=== PATIENT | female | born 2000 | race Caucasian/White ===

== ENCOUNTER 2019-01-30 22:38 | Emergency (ER) | payer SELFPAY ==
[~2019-01-30] VITALS: Ht 167.6 cm; Wt 57.1 kg
--- NOTE | 2019-01-30 23:44 | ED Upper Extremity ---
General Chief Complaint: Upper Extremity Stated Complaint: R HAND WEAKNESS/PAIN Source: patient, other Exam Limitations: no limitations History of Present Illness Date Seen by Provider: Jan 30, 2019 Time Seen by Provider: 23:26 Initial Comments The patient presents to ER by private conveyance with her significant other chief complaint of for the past 3 or 4 days she's had some progressively worsening pain especially on flexion of her right wrist. She is right-handed. She borrowed a cock-up splint from her mom who had similar problems when she was younger. She has not taken any NSAIDs Tylenol steroids nor had this worked up but she does have an appointment with Dr. Real on Saturday, 3 days from now. She has no other significant medical or surgical problems. She does get some weakness in her hand and sometimes when she raises it above the level of her head hurts. No history of trauma. Allergies and Home Medications Allergies Coded Allergies: Promethazine (Verified Adverse Reaction, Severe, SPASTIC MOVEMENTS Q 20 SECONDS REPETIVELY, 08/29/09) Patient Home Medication List Home Medication List Reviewed: Yes Review of Systems Constitutional: No chills, No diaphoresis EENTM: No ear discharge, No ear pain Respiratory: No cough, No short of breath Cardiovascular: No chest pain, No edema Gastrointestinal: No abdominal pain, No nausea Genitourinary: No discharge, No dysuria : No LMP: Jan 28, 2019 Musculoskeletal: No back pain, No joint pain Skin: No pruritus, No rash Past Vbliadb-Nvvhcy-Sfpbnk Hx Patient Social History Alcohol Use: Denies Use Recreational Drug Use: No Smoking Status: Never a Smoker Recent Foreign Travel: No Contact w/Someone Who Travel: No Past Medical History Reproductive Disorders: No Physical Exam Vital Signs Capillary Refill : Height, Weight, BMI Height: '" Weight: lbs. oz. kg; BMI Method: General Appearance: WD/WN, no apparent distress HEENT: PERRL/EOMI, normal ENT inspection, pharynx normal Neck: non-tender, full range of motion, supple, normal inspection Cardiovascular: normal peripheral pulses, regular rate, rhythm Respiratory: no respiratory distress, no accessory muscle use Shoulder: normal inspection, non-tender, no evidence of injury, normal ROM (r) Elbow/Forearm: normal inspection, non-tender, no evidence of injury, normal ROM, Right Wrist: Yes normal inspection, Yes no evidence of injury, Yes normal ROM, Yes soft tissue tenderness (tenderness to Tinel's Minor over the flexor retinaculum and median nerve. Phalen's maneuver also re-create some of her symptoms.) Hand: normal inspection, non-tender, no evidence of injury, normal ROM, Right, soft tissue tenderness (capillary refill right hand all 5 digits brisk less than 1 second. Radial pulse 2 out of 4 bilateral upper extremities) Neurologic/Psychiatric: no motor/sensory deficits, alert, normal mood/affect, oriented x 3 Progress/Results/Core Measures Results/Orders My Orders Orders - GUANACO ZHONG Naproxen Tablet (Naprosyn Tablet) (01/30/19 23:45) Progress Progress Note : Time: 23:42 Progress Note Conservative management and continue to wear the cockup. Keep follow-up with Dr. Real. We'll put her on prescription Naprosyn. Departure Impression Primary Impression: Median nerve compression Disposition: 01 HOME, SELF-CARE Condition: Stable Departure-Patient Inst. Decision time for Depature: 23:44 Referrals: NIGEL REAL MD (PCP/Family) Primary Care Physician Patient Instructions: Carpal Tunnel Exercises, Carpal Tunnel Syndrome (DC) Add. Discharge Instructions: Review the exercises in the handout. Use ice applied directly to the wrist for swelling or pain or other symptoms. Use Tylenol 1000 mg as needed for breakthrough pain. Use the Naprosyn 500 mg twice daily for the next 2 weeks on a schedule. Keep your follow-up appointment with your primary care doctor for continued management. Wear the cock-up splint at all times except to bathe. All discharge instructions reviewed with patient and/or family. Voiced understanding. Scripts Naproxen (Naprosyn) 500 Mg Tablet 500 MG PO BID for 14 Days, #30 TAB 0 Refills Prov: GUANACO ZHONG 01/30/19 Work/School Note: Work Release Form Date Seen in the Emergency Department: Jan 30, 2019 Return to Work: Jan 31, 2019 Restrictions: Need Release from Doctor Other Restrictions Listed Below: Wear the cock-up splint until 02/13/18. Copy Copies To 1: NIGEL REAL MD, TITUS J Jan 30, 2019 23:44
[2019-01-30] MEDS ORDERED: NAPR-1071 PO (23:45)
[2019-01-30] MEDS ORDERED: NAPROXEN 250 MG (NAPROSYN) TABLET PO ONE (23:45)
[2019-01-30] MEDS ORDERED: RX-NAPROXEN (NAPROSYN) 250 MG TAB PPK#4 PO ONE (23:57)
[2019-01-31] MEDS ORDERED: RX-NAPROXEN (NAPROSYN) 250 MG TAB PPK#4 PO STA
[2019-01-31 00:10] VITALS: BP 105/70
== END 2019-01-31 00:11 | disposition home or self-care (01) ==
LOC: EDUNIT# 22:38 → ER 22:39
DX: G56.01 Carpal tunnel syndrome, right upper limb (principal); Z88.8 Allergy status to other drugs, medicaments and biological substances
CPT/HCPCS: 99283

== ENCOUNTER 2020-11-22 00:25 | Emergency (ER) | payer SELFPAY ==
[~2020-11-22] VITALS: Ht 167.7 cm; Wt 55.3 kg
[~2020-11-22 00:25] MED LIST: NAPR-1071 PO
[2020-11-22] MEDS ORDERED: KETOROLAC 30 MG/ML VIAL IVP ONE (00:45)
[2020-11-22] MEDS ORDERED: PANTOPRAZOLE 40 MG (PROTONIX) VIAL IV ONE (00:45)
[2020-11-22 00:50] LABS: BILIRUBIN,URINE NEGATIVE (NEGATIVE); CLARITY,URINE CLEAR; COLOR,URINE YELLOW; GLUCOSE, URINE (UA) NEGATIVE (NEGATIVE); KETONES,URINE NEGATIVE (NEGATIVE); LEUKOCYTE ESTERASE ,URINE NEGATIVE (NEGATIVE); NITRITE,URINE NEGATIVE (NEGATIVE); PROTEIN,URINE NEGATIVE (NEGATIVE)
--- NOTE | 2020-11-22 00:50 | ED Abdominal Pain ---
General Stated Complaint: SEVERE ABD PAIN,PAIN ABOVE BELLY BUTTON Source of Information: Patient Exam Limitations: No Limitations History of Present Illness Date Seen by Provider: Nov 22, 2020 Time Seen by Provider: 00:32 Initial Comments Patient presents ER by private conveyance from home with chief complaint of abdominal pain in the epigastric region. Had this episode 3 or 4 days ago but it went away spontaneously. Came back tonight. Seems to get worse after eating. She had chips and cheese dip tonight. No nausea presently but she did have some when the pain got very intense. She rates it as a 7 out of 10 now. No history of abdominal surgeries or trauma. No work-up thus far. No dysuria diarrhea or constipation. No fevers chills cough shortness of air. She did try some Tums and it did not do anything for her pain. Allergies and Home Medications Allergies Coded Allergies: promethazine (Verified Adverse Reaction, Severe, SPASTIC MOVEMENTS Q 20 SECONDS REPETIVELY, 08/29/09) Home Medications Naproxen 500 Mg Tablet, 500 MG PO BID Prescribed by: GUANACO ZHONG on 01/30/19 7647 Patient Home Medication List Home Medication List Reviewed: Yes Review of Systems Review of Systems Constitutional: No chills, No diaphoresis EENTM: No Blurred Vision, No Double Vision Respiratory: Denies Cough, Denies Shortness of Air Cardiovascular: Denies Chest Pain, Denies Lightheadedness Gastrointestinal: See HPI, Abdominal Pain; Denies Constipated, Denies Diarrhea, Denies Nausea, Denies Vomiting Genitourinary: Denies Burning, Denies Discharge Musculoskeletal: No back pain, No joint pain Psychiatric/Neurological: Denies Anxiety, Denies Depressed All Other Systems Reviewed Negative Unless Noted: Yes Past Wdvnszz-Qmgakk-Ygllqn Hx Patient Social History Alcohol Use: Rarely Uses Drug of Choice: MARIJUANA Type Used: Electronic/Vapor Recent Hopitalizations: No Seasonal Allergies Seasonal Allergies: No Past Medical History Surgeries: No (WISDOM TEETH) Respiratory: No Cardiac: No Neurological: No Reproductive Disorders: No Genitourinary: No Gastrointestinal: No Musculoskeletal: No Endocrine: No HEENT: No Cancer: No Psychosocial: No Blood Disorders: No Physical Exam Vital Signs Vital Signs - First Documented 11/22/20 00:35 Temp 36.6 Pulse 95 Resp 18 B/P (MAP) 128/78 (95) Pulse Ox 97 O2 Delivery Room Air Capillary Refill : Height/Weight/BMI Height: 5'6.00" Weight: 125lbs. 12.8oz. [id number]; BMI Method:Stated General Appearance: WD/WN, no apparent distress HEENT: PERRL/EOMI, pharynx normal Neck: full range of motion, normal inspection Respiratory: no respiratory distress, no accessory muscle use Cardiovascular: normal peripheral pulses, regular rate, rhythm Gastrointestinal: normal bowel sounds, soft, no organomegaly, tenderness (Epigastric tenderness), other (Negative for Muller sign tenderness, rebound tenderness, Rovsing sign, psoas sign.) Extremities: normal range of motion, non-tender, normal capillary refill Neurologic/Psychiatric: alert, normal mood/affect, oriented x 3 Skin: normal color, warm/dry Progress/Results/Core Measures Results/Orders Lab Results Laboratory Tests Test 11/22/20 00:35 11/22/20 00:45 11/22/20 01:20 Range/Units Urine Color YELLOW Urine Clarity CLEAR Urine pH 6.0 5-9 Urine Specific [place] 1.025 H 1.016-1.022 Urine Protein NEGATIVE NEGATIVE Urine Glucose (UA) NEGATIVE NEGATIVE Urine Ketones NEGATIVE NEGATIVE Urine Nitrite NEGATIVE NEGATIVE Urine Bilirubin NEGATIVE NEGATIVE Urine Urobilinogen 0.2 < = 1.0 MG/DL Urine Leukocyte Esterase NEGATIVE NEGATIVE Urine RBC (Auto) TRACE-I NEGATIVE Urine RBC 2-5 H /HPF Urine WBC NONE /HPF Urine Squamous Epithelial Cells 5-10 /HPF Urine Crystals NONE /LPF Urine Bacteria NEGATIVE /HPF Urine Casts NONE /LPF Urine Mucus SMALL H /LPF Urine Culture Indicated NO White Blood Count 10.7 4.3-11.0 10^3/uL Red Blood Count 4.39 3.80-5.11 10^6/uL Hemoglobin 13.8 11.5-16.0 g/dL Hematocrit 42 35-52 % Mean Corpuscular Volume 95 80-99 fL Mean Corpuscular Hemoglobin 31 25-34 pg Mean Corpuscular Hemoglobin Concent 33 32-36 g/dL Red Cell Distribution Width 12.2 10.0-14.5 % Platelet Count 266 130-400 10^3/uL Mean Platelet Volume 11.8 9.0-12.2 fL Immature Granulocyte % (Auto) 0 % Neutrophils (%) (Auto) 40 L 42-75 % Lymphocytes (%) (Auto) 24 12-44 % Monocytes (%) (Auto) 7 0-12 % Eosinophils (%) (Auto) 28 H 0-10 % Basophils (%) (Auto) 1 0-10 % Neutrophils # (Auto) 4.3 1.8-7.8 10^3/uL Lymphocytes # (Auto) 2.6 1.0-4.0 10^3/uL Monocytes # (Auto) 0.8 0.0-1.0 10^3/uL Eosinophils # (Auto) 2.9 H 0.0-0.3 10^3/uL Basophils # (Auto) 0.1 0.0-0.1 10^3/uL Immature Granulocyte # (Auto) 0.0 0.0-0.1 10^3/uL Neutrophils % (Manual) 34 % Lymphocytes % (Manual) 31 % Monocytes % (Manual) 10 % Eosinophils % (Manual) 25 % Blood Morphology Comment NORMAL Sodium Level 138 135-145 MMOL/L Potassium Level 3.9 3.6-5.0 MMOL/L Chloride Level 105 98-107 MMOL/L Carbon Dioxide Level 23 21-32 MMOL/L Anion Gap 10 5-14 MMOL/L Blood Urea Nitrogen 13 7-18 MG/DL Creatinine 0.74 0.60-1.30 MG/DL Estimat Glomerular Filtration Rate > 60 BUN/Creatinine Ratio 18 Glucose Level 90 70-105 MG/DL Calcium Level 8.5 8.5-10.1 MG/DL Corrected Calcium 8.7 8.5-10.1 MG/DL Total Bilirubin 0.3 0.1-1.0 MG/DL Aspartate Amino Transf (AST/SGOT) 18 5-34 U/L Alanine Aminotransferase (ALT/SGPT) 15 0-55 U/L Alkaline Phosphatase 53 40-136 U/L C-Reactive Protein High Sensitivity 0.05 0.00-0.50 MG/DL Total Protein 6.5 6.4-8.2 GM/DL Albumin 3.7 3.2-4.5 GM/DL Lipase 17 8-78 U/L My Orders Orders - GUANACO ZHONG Ua Culture If Indicated (11/22/20 00:31) Urine Bedside (11/22/20 00:31) Cbc With Automated Diff (11/22/20 00:45) Comprehensive Metabolic Panel (11/22/20 00:45) Hs C Reactive Protein (11/22/20 00:45) Lipase (11/22/20 00:45) Pantoprazole Injection (Protonix Injecti (11/22/20 00:45) Ketorolac Injection (Toradol Injection) (11/22/20 00:45) Manual Differential (11/22/20 00:45) Lactated Ringers (Lr 1000 Ml Iv Solution (11/22/20 00:57) Ed Iv/Invasive Line Start (11/22/20 01:09) Lactated Ringers (Lr 1000 Ml Iv Solution (11/22/20 01:15) Medications Given in ED Current Medications Medications Dose Ordered Sig/Hayde Route Start Time Stop Time Status Last Admin Dose Admin Ketorolac Tromethamine 30 mg ONCE ONCE IVP 11/22/20 00:45 11/22/20 00:48 DC 11/22/20 00:53 30 MG Lactated Ringer's 1,000 ml @ 0 mls/hr Q0M ONCE IV 11/22/20 01:15 11/22/20 01:16 DC 11/22/20 01:00 0 MLS/HR Pantoprazole 40 mg ONCE ONCE IV 11/22/20 00:45 11/22/20 00:48 DC 11/22/20 00:53 40 MG Vital Signs/I&O 11/22/20 00:35 Temp 36.6 Pulse 95 Resp 18 B/P (MAP) 128/78 (95) Pulse Ox 97 O2 Delivery Room Air Progress Progress Note #1: Time: 00:49 Progress Note Differential includes GI, duodenum, pancreas, gallbladder, Meckel's less likely appendicitis. Her vitals are normal. We will get some labs and see if there is any evidence of inflammation and if so we will get a CT of her abdomen and pelvis otherwise we will recommend an ultrasound of her right upper quadrant. We will start with some Toradol for her 7 out of 10 pain. Progress Note #2: Time: 01:53 Progress Note Pain is completely gone after the Toradol. Labs are unremarkable. We discussed following up with Dr. Gaitan, primary care and further work-up including possibly an ultrasound of the gallbladder. Departure Impression Primary Impression: Epigastric abdominal pain Disposition: HOME, SELF-CARE Condition: Stable Departure-Patient Inst. Decision time for Depature: 01:45 Referrals: NIGEL GAITAN MD (PCP/Family) Primary Care Physician Patient Instructions: Abdominal Pain, Adult ED Add. Discharge Instructions: I am concerned about your gallbladder as well as possibility of inflammation or irritation of the lining of your esophagus, stomach or duodenum. Call your primary care doctor and follow-up in the clinic in the next couple we eks. We will put you on Carafate and pantoprazole for the next 2 weeks. Carafate half an hour before meals and at bedtime, 4 times a day. Pantoprazole 40 mg daily. Scripts Pantoprazole Sodium (Pantoprazole Sodium) 40 Mg Tablet.dr 40 MG PO DAILY for 30 Days, #30 TAB 0 Refills Prov: GUANACO ZHONG 11/22/20 Sucralfate (Carafate) 1 Gm Tablet 1 GM PO QIDACHS for 14 Days, #56 TAB 0 Refills Prov: GUANACO ZHONG 11/22/20 Work/School Note: Work Release Form Date Seen in the Emergency Department: Nov 22, 2020 Return to Work: Nov 23, 2020 Restrictions: No Restrictions Copy Copies To 1: NIGEL GAITAN MD, TITUS J Nov 22, 2020 00:50
[2020-11-22 00:57] LABS: BACTERIA,URINE NEGATIVE /HPF
[2020-11-22] MEDS ORDERED: LACTATED RINGERS 1,000 ML IV ONE ×2 (00:57→01:15)
[2020-11-22 01:01] LABS: BASOPHILS # (AUTO) 0.1 10^3/uL (0.0-0.1); BASOPHILS % (AUTO) 1 % (0-10); EOSINOPHILS # (AUTO) 2.9 10^3/uL (0.0-0.3); EOSINOPHILS % (AUTO) 28 % (0-10); HEMATOCRIT 42 % (35-52); HEMOGLOBIN 13.8 g/dL (11.5-16.0); LYMPHOCYTES # (AUTO) 2.6 10^3/uL (1.0-4.0); LYMPHOCYTES % (AUTO) 24 % (12-44); MEAN CORPUSCULAR HEMOGLOBIN 31 pg (25-34); MEAN CORPUSCULAR HGB CONC 33 g/dL (32-36); MEAN CORPUSCULAR VOLUME 95 fL (80-99); MEAN PLATELET VOLUME 11.8 fL (9.0-12.2); MONOCYTES # (AUTO) 0.8 10^3/uL (0.0-1.0); MONOCYTES % (AUTO) 7 % (0-12); NEUTROPHILS # (AUTO) 4.3 10^3/uL (1.8-7.8); NEUTROPHILS % (AUTO) 40 % (42-75); PLATELET COUNT 266 10^3/uL (130-400); WHITE BLOOD COUNT 10.7 10^3/uL (4.3-11.0)
[2020-11-22 01:20] LABS: EOSINOPHILS % (MANUAL) 25 %; LYMPHOCYTES % (MANUAL) 31 %; MONOCYTES % (MANUAL) 10 %; NEUTROPHILS % (MANUAL) 34 %; RBC MORPH NORMAL
[2020-11-22 01:45] LABS: ALANINE AMINOTRANSFERASE 15 U/L (0-55); ALBUMIN 3.7 GM/DL (3.2-4.5); ALKALINE PHOSPHATASE 53 U/L (40-136); BILIRUBIN,TOTAL 0.3 MG/DL (0.1-1.0); BUN/CREATININE RATIO 18; CALCIUM 8.5 MG/DL (8.5-10.1); CARBON DIOXIDE 23 MMOL/L (21-32); CHLORIDE 105 MMOL/L (98-107); CREATININE SERUM 0.74 MG/DL (0.60-1.30); GFR ESTIMATED > 60; GLUCOSE 90 MG/DL (70-105); LIPASE 17 U/L (8-78); POTASSIUM 3.9 MMOL/L (3.6-5.0); SODIUM 138 MMOL/L (135-145); TOTAL PROTEIN 6.5 GM/DL (6.4-8.2)
[2020-11-22] MEDS ORDERED: SUCR1TAB36 PO (01:57)
[2020-11-22] MEDS ORDERED: PANT40TA52 PO (01:57)
[2020-11-22 02:10] VITALS: BP 98/72
== END 2020-11-22 02:11 | disposition home or self-care (01) ==
LOC: EDUNIT# 00:25 → ER 00:29
DX: R10.13 Epigastric pain (principal); Z88.8 Allergy status to other drugs, medicaments and biological substances
CPT/HCPCS: 36415; 80053; 81000; 83690; 84703; 85007; 85027; 86141

== ENCOUNTER 2021-11-01 11:32 | Emergency (ER) | payer SELFPAY ==
[~2021-11-01] VITALS: Ht 167.7 cm; Wt 54.4 kg
[~2021-11-01 11:32] MED LIST changes: +PANT40TA52 PO; +SUCR1TAB36 PO
[2021-11-01] MEDS ORDERED: LACTATED RINGERS 1,000 ML IV SCH (12:00)
[2021-11-01] MEDS ORDERED: LORazepam INJ 2 MG/ML (ATIVAN) VIAL IVP PRN (12:00)
[2021-11-01] MEDS ORDERED: ONDANSETRON 4 MG/2 ML (SDV) Z0FRAN IVP ONE (12:00)
--- NOTE | 2021-11-01 12:02 | ED Abdominal Pain ---
General Chief Complaint: Abdominal/GI Problems Stated Complaint: VOMITING Nursing Triage Note: PT AMB TO RM 9 WITH COMPLAINT OF ABD PAIN, N/V X1 WEEK. Source of Information: Patient Exam Limitations: No Limitations History of Present Illness Date Seen by Provider: Nov 01, 2021 Time Seen by Provider: 12:00 Initial Comments To ER by mother by private vehicle with reports of nausea vomiting and diffuse abdominal pain for 1 week. Patient states that she believes it started as anxiety and then has progressed to nausea and vomiting since then. Denies fevers or chills. She has had loose stools. No fevers no urinary symptoms. She states that she always feels very anxious and has some depression. She has an appointment with behavioral health tomorrow. Mother states "I think she is a threat to herself". Patient denies any thoughts of wanting to hurt herself. Mother states "she just doesnt take care of herself". Timing/Duration: 1-2 Days Severity/Quality: Moderate Location: Generalized Abdomen Radiation: No Radiation Activities at Onset: None Associated Symptoms: Nausea/Vomiting Allergies and Home Medications Allergies Coded Allergies: promethazine (Verified Adverse Reaction, Severe, SPASTIC MOVEMENTS Q 20 SECONDS REPETIVELY, 08/29/09) Patient Home Medication List Home Medication List Reviewed: Yes Naproxen (Naprosyn) 500 Mg Tablet, 500 MG PO BID Prescribed by: GUANACO ZHONG on 01/30/19 1294 Pantoprazole Sodium (Pantoprazole Sodium) 40 Mg Tablet.dr, 40 MG PO DAILY Prescribed by: GUANACO ZHONG on 11/22/20156 Sucralfate (Carafate) 1 Gm Tablet, 1 GM PO QIDACHS Prescribed by: GUANACO ZHONG on 11/22/20156 Review of Systems Review of Systems Constitutional: see HPI EENTM: No Symptoms Reported Respiratory: No Symptoms Reported Cardiovascular: No Symptoms Reported Gastrointestinal: See HPI, Abdominal Pain, Diarrhea, Nausea Genitourinary: No Symptoms Reported Musculoskeletal: no symptoms reported Skin: no symptoms reported Psychiatric/Neurological: See HPI, Anxiety Endocrine: No Symptoms Reported Hematologic/Lymphatic: No Symptoms Reported Past Eetrxdp-Hjqqnp-Wgdxse Hx Patient Social History Tobacco Use?: No Use of E-Cig and/or Vaping dev: Yes Substance use?: No Alcohol Use?: No Pt feels they are or have been: No Immunizations Up To Date Influenza Vaccine Up-to-Date: Yes; Up-to-Date Seasonal Allergies Seasonal Allergies: No Past Medical History Surgeries: No (WISDOM TEETH) Respiratory: No Cardiac: No Neurological: No Reproductive Disorders: No Genitourinary: No Gastrointestinal: No Musculoskeletal: No Endocrine: No HEENT: No Cancer: No Psychosocial: No Blood Disorders: No Physical Exam Vital Signs Vital Signs - First Documented 11/01/21 11:45 Temp 37.5 Pulse 72 Resp 12 B/P (MAP) 103/65 (78) Pulse Ox 99 O2 Delivery Room Air Capillary Refill : Less Than 3 Seconds Height/Weight/BMI Height: 5'6.00" Weight: 125lbs. 12.8oz. 57.770066hs; 19.00 BMI Method:Stated General Appearance: WD/WN, no apparent distress, thin, other (Cooperative pleasant) HEENT: PERRL/EOMI, normal ENT inspection Neck: non-tender, full range of motion Respiratory: no respiratory distress, no accessory muscle use Cardiovascular: regular rate, rhythm, no murmur Gastrointestinal: normal bowel sounds, non tender, soft Extremities: normal range of motion, non-tender Neurologic/Psychiatric: alert, normal mood/affect, oriented x 3 Skin: normal color, warm/dry Progress/Results/Core Measures Results/Orders Lab Results Laboratory Tests Test 11/01/21 12:19 11/01/21 13:12 Range/Units White Blood Count 8.8 4.3-11.0 10^3/uL Red Blood Count 4.49 3.80-5.11 10^6/uL Hemoglobin 14.3 11.5-16.0 g/dL Hematocrit 42 35-52 % Mean Corpuscular Volume 94 80-99 fL Mean Corpuscular Hemoglobin 32 25-34 pg Mean Corpuscular Hemoglobin Concent 34 32-36 g/dL Red Cell Distribution Width 12.0 10.0-14.5 % Platelet Count 272 130-400 10^3/uL Mean Platelet Volume 10.3 9.0-12.2 fL Immature Granulocyte % (Auto) 0 % Neutrophils (%) (Auto) 79 H 42-75 % Lymphocytes (%) (Auto) 13 12-44 % Monocytes (%) (Auto) 6 0-12 % Eosinophils (%) (Auto) 1 0-10 % Basophils (%) (Auto) 1 0-10 % Neutrophils # (Auto) 7.0 1.8-7.8 10^3/uL Lymphocytes # (Auto) 1.1 1.0-4.0 10^3/uL Monocytes # (Auto) 0.6 0.0-1.0 10^3/uL Eosinophils # (Auto) 0.1 0.0-0.3 10^3/uL Basophils # (Auto) 0.1 0.0-0.1 10^3/uL Immature Granulocyte # (Auto) 0.0 0.0-0.1 10^3/uL Sodium Level 140 135-145 MMOL/L Potassium Level 4.4 3.6-5.0 MMOL/L Chloride Level 105 98-107 MMOL/L Carbon Dioxide Level 21 21-32 MMOL/L Anion Gap 14 5-14 MMOL/L Blood Urea Nitrogen 14 7-18 MG/DL Creatinine 0.75 0.60-1.30 MG/DL Estimat Glomerular Filtration Rate 115 BUN/Creatinine Ratio 19 Glucose Level 83 70-105 MG/DL Calcium Level 9.5 8.5-10.1 MG/DL Corrected Calcium 8.5-10.1 MG/DL Total Bilirubin 0.7 0.1-1.0 MG/DL Aspartate Amino Transf (AST/SGOT) 17 5-34 U/L Alanine Aminotransferase (ALT/SGPT) 15 0-55 U/L Alkaline Phosphatase 52 40-136 U/L Total Protein 8.1 6.4-8.2 GM/DL Albumin 4.6 H 3.2-4.5 GM/DL Lipase 19 8-78 U/L Serum Test, Qualitative NEGATIVE NEGATIVE Urine Color YELLOW Urine Clarity CLEAR Urine pH 6.0 5-9 Urine Specific [place] 1.025 H 1.016-1.022 Urine Protein TRACE H NEGATIVE Urine Glucose (UA) NEGATIVE NEGATIVE Urine Ketones 2+ H NEGATIVE Urine Nitrite NEGATIVE NEGATIVE Urine Bilirubin NEGATIVE NEGATIVE Urine Urobilinogen 0.2 < = 1.0 MG/DL Urine Leukocyte Esterase NEGATIVE NEGATIVE Urine RBC (Auto) 2+ H NEGATIVE Urine RBC 0-2 /HPF Urine WBC 0-2 /HPF Urine Squamous Epithelial Cells NONE /HPF Urine Crystals NONE /LPF Urine Bacteria FEW H /HPF Urine Casts PRESENT /LPF Urine Hyaline Casts RARE /LPF Urine Mucus LARGE H /LPF Urine Culture Indicated YES My Orders Orders - KALIN ZAMAN APRN Cbc With Automated Diff (11/01/21 11:59) Hcg,Qualitative Serum (11/01/21 11:59) Comprehensive Metabolic Panel (11/01/21 11:59) Lipase (11/01/21 11:59) Ua Culture If Indicated (11/01/21 11:59) Ed Iv/Invasive Line Start (11/01/21 11:59) Lactated Ringers (Lr 1000 Ml Iv Solution (11/01/21 12:00) Lorazepam Injection (Ativan Injection) (11/01/21 12:00) Ondansetron Injection (Zofran Injectio (11/01/21 12:00) Urine Culture (11/01/21 13:12) Medications Given in ED Current Medications Medications Dose Ordered Sig/Hayde Route Start Time Stop Time Status Last Admin Dose Admin Lorazepam 0.5 mg ONCE PRN IVP 11/01/21 12:00 11/01/21 12:18 0.5 MG Ondansetron HCl 8 mg ONCE ONCE IVP 11/01/21 12:00 11/01/21 12:01 DC 11/01/21 12:16 8 MG Vital Signs/I&O 11/01/21 11:45 Temp 37.5 Pulse 72 Resp 12 B/P (MAP) 103/65 (78) Pulse Ox 99 O2 Delivery Room Air Blood Pressure Mean: 78 Departure Communication (Admissions) 1358 resting at this time arousable to verbal stimuli. Does not feel nauseous anymore. They are concerned because she is been vomiting whenever she eats. Will send in a prescription for Zofran. She is also interested in starting something for her anxiety and depression. She has follow-up appointment with behavioral health tomorrow. Mother is at the bedside and agrees to have her follow-up with primary care Dr. Real. In the interim I will send in some Zofran and some Lexapro to get started. Impression Primary Impression: Nausea and vomiting Disposition: HOME, SELF-CARE Condition: Stable Departure-Patient Inst. Decision time for Depature: 13:51 Referrals: NIGEL REAL MD (PCP/Family) Primary Care Physician Patient Instructions: Nausea and Vomiting, Adult ED Add. Discharge Instructions: 1. Nausea medication as needed. Could be a good idea to take 1 of these pills 30 minutes or so before a meal time. Each pill will last about 6 hours so you can take 1 every 6 hours. Start the antidepressant/antianxiety medicine called Lexapro though be mindful that it will take about 2 to 3 weeks to notice some improvement and up to a month to notice maximum improvement. Follow-up with mental health tomorrow as scheduled and Dr. Real All discharge instructions reviewed with patient and/or family. Voiced understanding. Scripts Escitalopram Oxalate (Lexapro) 10 Mg Tablet 10 MG PO DAILY, #30 TAB Prov: KALIN ZAMAN APRN 11/01/21 Ondansetron (Ondansetron Odt) 8 Mg Tab.rapdis 8 MG PO Q6H PRN for NAUSEA/VOMITING, #20 TAB Prov: KALIN ZAMAN APRN 11/01/21 Copy Copies To 1: NIGEL REAL MD, PETER J APRN Nov 01, 2021 12:02
[2021-11-01 12:25] LABS: BASOPHILS # (AUTO) 0.1 10^3/uL (0.0-0.1); BASOPHILS % (AUTO) 1 % (0-10); EOSINOPHILS # (AUTO) 0.1 10^3/uL (0.0-0.3); EOSINOPHILS % (AUTO) 1 % (0-10); HEMATOCRIT 42 % (35-52); HEMOGLOBIN 14.3 g/dL (11.5-16.0); LYMPHOCYTES # (AUTO) 1.1 10^3/uL (1.0-4.0); LYMPHOCYTES % (AUTO) 13 % (12-44); MEAN CORPUSCULAR HEMOGLOBIN 32 pg (25-34); MEAN CORPUSCULAR HGB CONC 34 g/dL (32-36); MEAN CORPUSCULAR VOLUME 94 fL (80-99); MEAN PLATELET VOLUME 10.3 fL (9.0-12.2); MONOCYTES # (AUTO) 0.6 10^3/uL (0.0-1.0); MONOCYTES % (AUTO) 6 % (0-12); NEUTROPHILS % (AUTO) 79 % (42-75); PLATELET COUNT 272 10^3/uL (130-400); WHITE BLOOD COUNT 8.8 10^3/uL (4.3-11.0)
[2021-11-01 12:38] LABS: ALBUMIN 4.6 GM/DL (3.2-4.5); CHLORIDE 105 MMOL/L (98-107); POTASSIUM 4.4 MMOL/L (3.6-5.0); SODIUM 140 MMOL/L (135-145)
[2021-11-01 12:40] LABS: CALCIUM 9.5 MG/DL (8.5-10.1)
[2021-11-01 12:41] LABS: GLUCOSE 83 MG/DL (70-105); TOTAL PROTEIN 8.1 GM/DL (6.4-8.2)
[2021-11-01 12:42] LABS: CARBON DIOXIDE 21 MMOL/L (21-32)
[2021-11-01 12:43] LABS: BILIRUBIN,TOTAL 0.7 MG/DL (0.1-1.0)
[2021-11-01 12:44] LABS: ALKALINE PHOSPHATASE 52 U/L (40-136); CREATININE SERUM 0.75 MG/DL (0.60-1.30); GFR ESTIMATED 115
[2021-11-01 12:45] LABS: BUN/CREATININE RATIO 19
[2021-11-01 12:47] LABS: ALANINE AMINOTRANSFERASE 15 U/L (0-55)
[2021-11-01 12:48] LABS: LIPASE 19 U/L (8-78)
[2021-11-01 13:22] LABS: BILIRUBIN,URINE NEGATIVE (NEGATIVE); CLARITY,URINE CLEAR; COLOR,URINE YELLOW; GLUCOSE, URINE (UA) NEGATIVE (NEGATIVE); KETONES,URINE 2+ (NEGATIVE); LEUKOCYTE ESTERASE ,URINE NEGATIVE (NEGATIVE); NITRITE,URINE NEGATIVE (NEGATIVE); PROTEIN,URINE TRACE (NEGATIVE)
[2021-11-01 13:43] LABS: BACTERIA,URINE FEW /HPF; HYALINE CASTS, URINE RARE /LPF; RBC,URINE 0-2 /HPF; WBC,URINE 0-2 /HPF
[2021-11-01] MEDS ORDERED: ONDA8TAB13 PO (13:53)
[2021-11-01] MEDS ORDERED: ESCI10TA PO (13:53)
[2021-11-01 13:58] VITALS: BP 95/60
== END 2021-11-01 13:58 | disposition home or self-care (01) ==
LOC: EDUNIT# 11:32 → ER 11:34
DX: R11.2 Nausea with vomiting, unspecified (principal)
CPT/HCPCS: 36415; 80053; 81000; 83690; 84703; 85025; 87088